=== PATIENT | male | born 1965 | race Caucasian/White ===

== ENCOUNTER 2016-06-13 01:44 | Observation (INO) | payer MEDICAID, OTHER, SELFPAY ==
[~2016-06-13] VITALS: Ht 172.7 cm; Wt 78.0 kg
[2016-06-13] MEDS ORDERED: PANT40TA2 PO (02:01)
[2016-06-13] MEDS ORDERED: ASPI81TA85 PO (02:01)
[2016-06-13] MEDS ORDERED: METF500T PO (02:01)
[2016-06-13] MEDS ORDERED: RANI15TA PO (02:01)
[2016-06-13] MEDS ORDERED: GEMF600T PO (02:01)
[2016-06-13] MEDS ORDERED: PAXI40TA2 PO (02:01)
[2016-06-13] MEDS ORDERED: AMLO5TAB2 PO (02:01)
[2016-06-13 03:19] LABS: BASO % 0.2 % (0.0-1.0); EOS # 0.1 K/mm3 (0.0-0.50); EOS % 0.7 % (0.0-3.0); LARGE UNSTAINED CELL # 0.2 K/mm3 (0.0-0.4); LARGE UNSTAINED CELL % 1.8 % (0.0-4.0); LYMPH # 2.4 K/mm3 (1.5-4.5); LYMPH % 23.8 % (24.0-44.0); MEAN CORPUSCULAR HEMOGLOBIN 30.3 pg (27.0-33.0); MEAN CORPUSCULAR HGB CONC 33.9 g/dl (32.0-36.5); MEAN CORPUSCULAR VOLUME 89.3 fl (80.0-96.0); MONO # 0.4 K/mm3 (0.0-0.8); MONO % 4.2 % (0.0-5.0); NEUTROPHILS # 7.1 K/mm3 (1.8-7.7); NEUTROPHILS % 69.3 % (36.0-66.0); PLATELET COUNT, AUTOMATED 247 k/mm3 (150-450); RED CELL DISTRIBUTION WIDTH 12.3 % (11.5-14.5); WHITE BLOOD COUNT 10.3 K/mm3 (4.0-10.0)
[2016-06-13 03:33] LABS: ANION GAP 12 MEQ/L (8-16); BLOOD UREA NITROGEN 12 MG/DL (7-18); CALCIUM LEVEL 8.6 MG/DL (8.5-10.1); CARBON DIOXIDE LEVEL 24 MEQ/L (21-32); CHLORIDE LEVEL 103 MEQ/L (98-107); CREATININE FOR GFR 1.06 MG/DL (0.70-1.30); GLOMERULAR FILTRATION RATE > 60.0 (>56); GLUCOSE, FASTING 236 MG/DL (70-105); POTASSIUM SERUM 3.6 MEQ/L (3.5-5.1); SODIUM LEVEL 139 MEQ/L (136-145)
--- NOTE | 2016-06-13 04:50 | REPUSA ---
CLINICAL HISTORY: Stroke. TECHNIQUE: Multiple axial CT images were obtained through the brain without IV contrast material. COMMENTS: Cortical/subcortical hypodensity of the right frontal, parietal and temporal lobes suggestive of regional director karson ischemic encephalomalacia endotracheal the right middle cerebral artery. There is normal configuration of sella turcica. There are no intra or extra-axial collections. There is no mass effect or midline shift. There is no evidence of hematoma formation. No hydrocephalus is p resent. The ventricles are symmetrical. No abnormal calcifications are present. There are bilateral periventricular and subcortical white matter hypolucencies compatible with mild c hronic microvascular disease. Otherwise, no significant focal abnormalities are seen either in the posterior fossa or supratentoria l compartment. Mild chronic mucosal inflammatory changes of the ethmoid air cells. IMPRESSION: 1. 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 2. Mild chronic microvascular disease. 3. No evidence of acute intracranial pathology. Thank you for your kind referral of this patient.
[2016-06-13] MEDS ORDERED: LORazepam 2 MG/ML VIAL (J2060) IV STA (05:44)
[2016-06-13] MEDS ORDERED: OXAZEPAM 10 MG CAP PO SCH (06:00)
[2016-06-13] MEDS ORDERED: FISH1000 PO (06:17)
[2016-06-13] MEDS ORDERED: ASPI81TAEC PO (06:17)
[2016-06-13] MEDS ORDERED: GLUCOSE 4 GM CHEW TABLET PO PRN (06:30)
[2016-06-13] MEDS ORDERED: DEXTROSE 50% 50 ML SYRINGE IV PRN (06:30)
[2016-06-13] MEDS ORDERED: GLUCAGON FOR INJ 1 MG VIAL (J1610) SC PRN (06:30)
--- NOTE | 2016-06-13 07:24 | HPE ---
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 HISTORY OF PRESENT ILLNESS: Patient is a 50-year-old male with past medical history significant for hypertension recently diagnosed with cerebrovascular accident (CVA). He was diagnosed at [facility], 2 days ago, was transferred to [facility] where he was further evaluated but signed out against medical advice stating he was not allowed to smoke and did not want to be in the facility anymore so he left. He then went to [facility] where he also signed out against medical advice. His family brought him in today because he was unable to ambulate and had to crawl to the car. He agreed to come into the hospital for evaluation by physical therapy and possible rehabilitation. CT scan was done the emergency room, which showed chronic ischemic right middle cerebral artery and mild chronic microvascular disease. No evidence of acute stroke. Patient denies any nausea or vomiting. Denies any headaches or blurry vision at this time. He does have some left-sided upper and lower extremity deficits. He was admitted under hospitalist service. REVIEW OF SYSTEMS: 12-point review of systems was obtained. All of which was negative except for those mentioned above. HEENT: Pupils equal, round, reactive to light and accommodation. Neck: Supple. No jugular venous distention (JVD). Lungs: Clear bilaterally. Abdomen: Soft, nontender, nondistended. Extremities: No clubbing, cyanosis or edema. Neurologic: Patient has some motor deficits on the upper extremity and lower extremity on the left side. He is able to stand and ambulate but he staggers with ambulation due to left-sided weakness. LABORATORY FINDINGS: WBC is 10.3, hemoglobin 13.3, hematocrit 40, platelet count 247. Sodium 139, potassium 3.6, chloride 103, BUN 12, creatinine 1.06, fasting glucose 236, troponin less than 0.02. INR 1. ASSESSMENT AND PLAN: 1. 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 We will consult physical therapy (PT), occupational therapy (OT) and patient and family services (PFS) for possible rehabilitation versus home with PT. 2. Cerebrovascular accident. Patient was diagnosed with a CVA at [facility] but left against medical advice. We will monitor patient on telemetry. We will consult PT and OT for home safety evaluation. 3. Hypertension. We will continue patient's home medications. 4. History of alcohol abuse. We will start patient on Serax. He stated he last had a drink yesterday. He had two beers. He normally drinks six beers a day. 5. Deep venous thrombosis (DVT) prophylaxis. Sequential compressive devices (SCDs) while in bed.
[2016-06-13] MEDS: HumaLOG INSULIN (NovoLOG) PER UNIT SC SCH ×2 (07:30→12:00)
[2016-06-13] MEDS ORDERED: MULTIVITAMINS/MINERALS THERAP 1 TAB PO ONE (07:30)
[2016-06-13] MEDS ORDERED: FOLIC ACID 1 MG TAB PO ONE (07:30)
[2016-06-13] MEDS ORDERED: THIAMINE 100 MG TAB PO ONE (07:30)
[2016-06-13 08:10] VITALS: BP 191/83
[2016-06-13] MEDS ORDERED: amLODIPine 5 MG TAB PO SCH (09:00)
[2016-06-13] MEDS ORDERED: MULTIVITAMINS/MINERALS THERAP 1 TAB PO SCH (09:00)
[2016-06-13] MEDS ORDERED: THIAMINE 100 MG TAB PO SCH (09:00)
[2016-06-13] MEDS ORDERED: FOLIC ACID 1 MG TAB PO SCH (09:00)
[2016-06-13] MEDS ORDERED: ASPIRIN 81 MG ENTERIC TAB PO SCH (09:00)
[2016-06-13] MEDS ORDERED: PARoxetine 20 MG TAB PO SCH (09:00)
[2016-06-13] MEDS ORDERED: FAMOTIDINE 20 MG TAB PO SCH (09:00)
[2016-06-13] MEDS ORDERED: PANTOPRAZOLE 40MG TAB (PROTONIX) PO SCH (09:00)
--- NOTE | 2016-06-13 18:02 | DSES ---
DATE OF ADMISSION: 06/13/2016 DATE OF DISCHARGE: 06/13/2016 HISTORY OF PRESENT ILLNESS: Please see history and physical (H P) dated for today's date by Dr. Carlos Tinoco for further details of his admission. Current issues involve ataxia due to recent cerebrovascular accident. Does have known carotid stenosis with complete occlusion of one of the carotids, history of alcohol abuse, not demonstrating any symptoms of withdrawal. BRIEF HOSPITAL COURSE: A 50-year-old male with recent cerebrovascular accident (CVA) had signed out from [facility] as well as [facility] against medical advice, presented last evening due to issues with difficulty ambulating. Was initially agreeable to admission. However, he did become quite upset this morning when he was told that he was unable to go outside and smoke since [facility] is a smoke-free tobacco-free flow[facility] branch. I did offer a Nicoderm patch. He does not demonstrate any signs of tremulousness related to alcohol or alcohol withdrawal, although he was offered a prescription of Serax for his agitation which he refused. He refused physical therapy, occupational therapy or physical medicine and rehabilitation (PM and R) evaluation today. However, he is alert and oriented times three and does appear to be competent to be able to make his own decisions. I did go over an AGAINST MEDICAL ADVICE (AMA) paper which has listed potential risks, and the patient did elect to go ahead and sign out AMA, even though I did strongly encourage him to stay so we could work a better discharge plan and outpatient physical therapy if need be. Mr. Gan would not hear any further of it, and refused to participate with any further discussion. Therefore, however, he did sign the against medical advice paperwork which will be entered into his chart.
[2016-06-13] MEDS ORDERED: HumaLOG INSULIN (NovoLOG) PER UNIT SC SCH (21:00)
--- NOTE | 2016-06-15 12:06 | ECGEPIP ---
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
== END 2016-06-13 12:09 | disposition left against medical advice (07) ==
LOC: M ED 02:56 → M ED INP 06:23 → M PCU 08:10
PROVIDERS: ADMIT Internal Medicine; ATTEND Hospitalist
DX: I69.393 Ataxia following cerebral infarction (principal); F10.10 Alcohol abuse, uncomplicated; I10 Essential (primary) hypertension; Z79.899 Other long term (current) drug therapy; Z79.82 Long term (current) use of aspirin; F17.210 Nicotine dependence, cigarettes, uncomplicated